=== PATIENT | female | born 1950 | race African-American/Black ===

== ENCOUNTER 2020-04-08 08:39 | Outpatient (CLI) | payer OTHER ==
--- NOTE | 2020-04-08 09:08 | ULT ---
Renal ultrasound: 04/08/2020 COMPARISON: None HISTORY: Proteinuria TECHNIQUE: Multiplanar grayscale sonographic imaging of the kidneys and urinary bladder obtained. FINDINGS: The right kidney measures 10.1 6.1 x 4.4 cm, with a normal cortical thickness of approximat janae 2 cm. No renal mass, hydronephrosis, or renal stone is apparent on the right. The left kidney measures 9.6 x 6.1 x 4.5 cm, with a normal cortical thickness of 2 cm. No renal mass, hydronephrosis, or evidence of renal stone on the left. The urinary bladder appears grossly unremarkable. IMPRESSION: Unremarkable renal ultrasound.
== END 2020-04-08 08:40 | disposition home or self-care (01) ==
LOC: BICULT 08:39
PROVIDERS: ATTEND Family Medicine
DX: R80.9 Proteinuria, unspecified (principal)
CPT/HCPCS: 76770